=== PATIENT | male | born 1960 | race Hispanic/Latino ===

== ENCOUNTER 2024-03-29 06:14 | Day surgery (SDC) | payer MEDICARE, MEDICAID ==
[2024-03-28 10:52] VITALS: BMI 18.6
[2024-03-29] MEDS ORDERED: Lidocaine 1% (PF) 30 ML VIAL ONE (06:29)
[2024-03-29] MEDS ORDERED: Propofol 1,000 MG/100 ML VIAL IV ONE (06:29)
[2024-03-29] MEDS ORDERED: Ketamine In 0.9 % NaCl 50 MG/5 ML SYRINGE ONE (07:24)
[2024-03-29] MEDS ORDERED: Midazolam HCl 2 mg/2 ml Vial ONE (07:24)
== END 2024-03-29 09:36 | disposition home or self-care (01) ==
LOC: SDC 06:14
PROVIDERS: ATTEND Internal Medicine Gastroenterology
PROC: 0DBF8ZZ Excision of Right Large Intestine, Via Natural or Artificial Opening Endoscopic (ICD-10-PCS; principal; 2024-03-29)
DX: D12.6 Benign neoplasm of colon, unspecified (principal); K56.609 Unspecified intestinal obstruction, unspecified as to partial versus complete obstruction; K59.09 Other constipation; K59.89 Other specified functional intestinal disorders; H26.9 Unspecified cataract; E78.5 Hyperlipidemia, unspecified; H91.93 Unspecified hearing loss, bilateral; E03.9 Hypothyroidism, unspecified; F42.9 Obsessive-compulsive disorder, unspecified; G43.909 Migraine, unspecified, not intractable, without status migrainosus; D69.6 Thrombocytopenia, unspecified; Z98.890 Other specified postprocedural states; Z79.890 Hormone replacement therapy; Z79.899 Other long term (current) drug therapy; Z88.8 Allergy status to other drugs, medicaments and biological substances; Z91.011 Allergy to milk products
CPT/HCPCS: 45385; C1889; J2250; J2704; J3490; 88305